=== PATIENT | female | born 1990 | race African-American/Black ===

== ENCOUNTER 2021-06-21 23:39 | Inpatient (IN) | payer OTHER ==
[2021-06-22 00:09] VITALS: BMI 40.4
[2021-06-22] MEDS ORDERED: Bicitra 30 ML UDCUP PO PRN (00:17)
[2021-06-22] MEDS ORDERED: Ondansetron PF 4 MG/2 ML Vial IVP PRN ×4 (00:17→08:15)
[2021-06-22] MEDS ORDERED: Famotidine/PF 20 mg/2ml Vial SLOW IVP PRN (00:17)
[2021-06-22] MEDS ORDERED: hydrALAZINE 20 MG/ML VIAL SLOW IVP PRN ×2 (00:17→08:15)
[2021-06-22] MEDS ORDERED: Acetaminophen 500 MG TAB PO PRN (00:17)
[2021-06-22] MEDS ORDERED: CEFAZOLIN 2 GM in Premix Bag 1 BAG IVPB SCH (00:30)
[2021-06-22] MEDS ORDERED: Lactated Ringer's 1,000 ML IV SCH ×2 (00:30)
[2021-06-22] MEDS ORDERED: Meperidine HCl/PF 25 MG/ML VIAL SLOW IVP PRN ×2 (00:43→03:12)
[2021-06-22] MEDS ORDERED: Ondansetron HCl/PF 4 MG/2 ML Vial IVP PRN ×2 (00:43→03:12)
[2021-06-22] MEDS ORDERED: Fentanyl 100 MCG/2 ML VIAL SLOW IVP PRN ×2 (00:43→03:12)
[2021-06-22] MEDS ORDERED: diphenhydrAMINE 50 MG/ML VIAL IVP PRN ×2 (00:43→03:12)
[2021-06-22] MEDS ORDERED: Hydrocerin (Eucerin) Cream 120 gm Jar TOP PRN ×2 (00:43→03:12)
[2021-06-22] MEDS ORDERED: Promethazine HCl 25 MG/ML VIAL IM PRN ×2 (00:43→03:12)
[2021-06-22] MEDS ORDERED: Ketorolac Tromethamine 30 MG/ML VIAL IVP PRN (00:43)
[2021-06-22] MEDS ORDERED: Naloxone HCl 0.4 mg/ml Vial IVP PRN ×4 (00:43→03:12)
[2021-06-22] MEDS ORDERED: HYDROmorphone 2 MG/ML VIAL SLOW IVP PRN ×2 (00:43→03:12)
[2021-06-22] MEDS ORDERED: Promethazine HCl 25 MG SUPP PR PRN ×2 (00:43→03:12)
[2021-06-22] MEDS ORDERED: Naloxone HCl 0.4 mg/ml Vial IV PRN ×2 (00:43→03:12)
[2021-06-22] MEDS ORDERED: Ketorolac Tromethamine 30 MG/ML VIAL IVP SCH ×2 (00:45→03:15)
[2021-06-22] MEDS ORDERED: Communication Order-Pharmacy FS SCH ×2 (00:45→03:15)
[2021-06-22 01:08] LABS: Hemoglobin 11.8 g/dL (12.0-15.5); Mean Corpuscular HGB CONC 32.9 g/dL (32.0-36.0); Mean Corpuscular Hemoglobin 31.7 pg (27.0-33.0); Mean Corpuscular Volume 96.5 fl (81.6-98.3); Platelet Count 187 10x3/uL (150-450); RBC Distribution Width 13.9 % (11.5-14.5); Red Blood Cell (RBC) Count 3.72 10x6/uL (3.90-5.03)
[2021-06-22] MEDS ORDERED: Morphine PF 10 MG/10 ML VIAL ONE ×2 (01:36→07:27)
[2021-06-22 02:05] LABS: Hep B Surf Ag Non-Reactive S/CO (NonReactive); Syphilis Antibody Nonreactive (Nonreactive); Syphilis Antibody Index 0.11 S/CO (<1.00 Non-Reactive)
[2021-06-22] MEDS ORDERED: Dexamethasone 4 mg/ml Vial ONE (02:09)
[2021-06-22] MEDS ORDERED: PHENYLEPHRINE-NS 100 MCG/ML 10 ML SYRINGE ONE (02:09)
[2021-06-22] MEDS ORDERED: Ondansetron PF 4 MG/2 ML Vial ONE (02:09)
[2021-06-22] MEDS ORDERED: Oxytocin 10 UNITS/ML VIAL ONE (02:09)
[2021-06-22 02:10] LABS: HBSAg Index 0.18 S/CO (0-0.99)
[2021-06-22] MEDS ORDERED: L&D-Morphine 4 MG/ML VIAL SLOW IVP PRN (03:12)
[2021-06-22 04:12] LABS: SARS-CoV-2 NAA Rapid Test Not Detected (NotDetected)
[2021-06-22] MEDS: Ketorolac Tromethamine 30 MG/ML VIAL IVP PRN ×2 (04:31→13:31)
[2021-06-22] MEDS ORDERED: Morphine 4 MG/ML VIAL ONE (07:32)
[2021-06-22 08:11] LABS: HIV (1/2) Antibody/Antigen Non-Reactive (NonReactive); HIV 1/2 INDEX 0.12 S/CO (<1.00)
[2021-06-22] MEDS ORDERED: Bisacodyl 10 MG SUPP PR PRN (08:15)
[2021-06-22] MEDS ORDERED: Lanolin Ointment 7 GM TUBE TOP PRN (08:15)
[2021-06-22] MEDS ORDERED: Boostrix 0.5 ML (Tdap) VIAL IM ONE (08:15)
[2021-06-22] MEDS: Ferrous Sulfate 325 MG TAB PO SCH ×2 (11:44→21:36)
[2021-06-22] MEDS: Docusate Calcium (SURFAK) 240 MG CAP PO SCH ×2 (11:44→21:35)
[2021-06-22] MEDS: Prenatal Vitamin 1 TAB PO SCH (11:45)
[2021-06-22] MEDS: HYDROcodone/Acetaminophen 5/325 mg Tablet PO PRN (21:34)
[2021-06-22] MEDS: Simethicone Chewable 80 MG TAB PO PRN (21:35)
[2021-06-23] MEDS: HYDROcodone/Acetaminophen 5/325 mg Tablet PO PRN ×2 (04:26→11:22)
[2021-06-23] MEDS: Simethicone Chewable 80 MG TAB PO PRN (06:12)
[2021-06-23] MEDS: Ibuprofen 800 MG TAB PO SCH ×3 (06:12→20:46)
[2021-06-23 06:50] LABS: Hemoglobin 9.1 g/dL (12.0-15.5); Mean Corpuscular HGB CONC 32.4 g/dL (32.0-36.0); Mean Corpuscular Hemoglobin 31.9 pg (27.0-33.0); Mean Corpuscular Volume 98.6 fl (81.6-98.3); Mean Platelet Volume 10.2 fl (7.4-10.4); Platelet Count 144 10x3/uL (150-450); RBC Distribution Width 13.7 % (11.5-14.5); Red Blood Cell (RBC) Count 2.85 10x6/uL (3.90-5.03); White Blood Cell (WBC) Count 7.6 10x3/uL (3.5-10.5)
[2021-06-23] MEDS: Prenatal Vitamin 1 TAB PO SCH (08:04)
[2021-06-23] MEDS: Docusate Calcium (SURFAK) 240 MG CAP PO SCH ×2 (08:04→20:46)
[2021-06-23] MEDS: Ferrous Sulfate 325 MG TAB PO SCH ×2 (08:05→20:48)
[2021-06-24] MEDS: Ibuprofen 800 MG TAB PO SCH ×3 (04:22→21:36)
[2021-06-24] MEDS: HYDROcodone/Acetaminophen 5/325 mg Tablet PO PRN ×4 (04:26→21:36)
[2021-06-24] MEDS: Docusate Calcium (SURFAK) 240 MG CAP PO SCH ×2 (09:39→21:36)
[2021-06-24] MEDS: Ferrous Sulfate 325 MG TAB PO SCH ×2 (09:39→22:55)
[2021-06-24] MEDS: Prenatal Vitamin 1 TAB PO SCH (09:39)
[2021-06-25] MEDS: Ibuprofen 800 MG TAB PO SCH (05:56)
[2021-06-25] MEDS: HYDROcodone/Acetaminophen 5/325 mg Tablet PO PRN ×2 (05:58→10:29)
[2021-06-25 07:54] VITALS: BP 116/67; TEMP 98.8
[2021-06-25] MEDS: Ferrous Sulfate 325 MG TAB PO SCH (08:29)
[2021-06-25] MEDS: Prenatal Vitamin 1 TAB PO SCH (08:29)
[2021-06-25] MEDS: Docusate Calcium (SURFAK) 240 MG CAP PO SCH (08:29)
== END 2021-06-25 12:45 | disposition home or self-care (01) | DRG 788 ==
LOC: CSHLD/OP 23:39 → CSHLD 23:40 → UNDOADMIN 23:40 → CSHLD 06-22 00:17 → CSHPP 06-22 08:35
PROVIDERS: ADMIT Obstetrics & Gynecology; ATTEND Obstetrics & Gynecology
PROC: 10D00Z1 Extraction of Products of Conception, Low, Open Approach (ICD-10-PCS; principal; 2021-06-22)
DX: O34.211 Maternal care for low transverse scar from previous cesarean delivery (principal); O99.62 Diseases of the digestive system complicating childbirth; O77.0 Labor and delivery complicated by meconium in amniotic fluid; O99.02 Anemia complicating childbirth; K66.0 Peritoneal adhesions (postprocedural) (postinfection); Z3A.38 38 weeks gestation of pregnancy; Z37.0 Single live birth
CPT/HCPCS: 36415; 51702; 85027; 86780; 86850; 86900; 86901; 87340; 87389; 99285; J1100; J1885; J2270; J2274; J2405; J2550; J2590; J7120; S0028; U0002

== ENCOUNTER 2022-07-22 02:43 | Inpatient (IN) | payer OTHER ==
[2022-07-22 03:09] VITALS: BMI 39.6
[2022-07-22] MEDS ORDERED: Morphine 4 MG/ML VIAL SLOW IVP SCH ×2 (03:45→06:15)
[2022-07-22] MEDS ORDERED: Lactated Ringer's 1,000 ML IV SCH ×2 (03:45→08:00)
[2022-07-22 04:15] LABS: #Monocytes 0.4 10x3/uL (0.0-1.1); #Neutrophils 6.6 10x3/uL (1.5-8.4); %Basophils 0.1 % (0.0-2.0); %Eosinophils 0.5 % (0.0-6.0); %Lymphocytes 16.5 % (18.0-47.0); %Monocytes 4.9 % (0.0-10.0); %Neutrophils 77.6 % (40.0-75.0); Hemoglobin 11.7 g/dL (12.0-15.5); Mean Corpuscular HGB CONC 33.7 g/dL (32.0-36.0); Platelet Count 160 10x3/uL (150-450); RBC Distribution Width 13.3 % (11.5-14.5); Red Blood Cell (RBC) Count 3.77 10x6/uL (3.90-5.03); White Blood Cell (WBC) Count 8.5 10x3/uL (3.5-10.5)
[2022-07-22 04:21] LABS: ALT (SGPT) 7 U/L (8-55); AST (SGOT) 15 U/L (5-34); Albumin 3.3 g/dL (3.5-5.0); Alkaline Phosphatase 126 U/L (40-110); Anion Gap 13 mmol/L (10-20); BUN (Urea Nitrogen) 11 mg/dL (7.0-18.7); Bilirubin, Total 0.3 mg/dL (0.2-1.2); Calc. Creatinine Clearance 233 mL/min (70-130); Calcium 8.6 mg/dL (7.8-10.44); Carbon Dioxide 18 mmol/L (22-29); Chloride 109 mmol/L (98-107); Estimated GFR 105; Globulin 3.9 g/dL (2.4-3.5); Glucose 149 mg/dL (70-105); Potassium 4.1 mmol/L (3.5-5.1); Protein, Total 7.2 g/dL (6.0-8.3); Sodium 136 mmol/L (136-145)
[2022-07-22 05:10] LABS: Bilirubin Neg (Negative); Blood, Urine Negative (Negative); CAUTI Indications for Culture Pregnancy; Glucose, Urine (Dipstick) Normal (Negative); Ketone, Urine 5 mg/dL (Negative); Leukocyte Negative (Negative); Nitrite Negative (Negative); Protein, Urine (Dipstick) 15 mg/dl (Neg-Trace); Specific Gravity, Urine 1.025 (1.005-1.030); Urobilinogen Normal mg/dL (Less than 2)
[2022-07-22 05:11] LABS: Clarity Cloudy (Clear)
[2022-07-22 05:13] LABS: Urine Culture Reflex Yes Yes
[2022-07-22 05:22] LABS: Bacteria/HPF 1+ HPF (None Seen); RBC/HPF 0-3 HPF (0-3); WBC/HPF 0-3 HPF (0-3)
[2022-07-22] MEDS ORDERED: Promethazine HCl 25 MG/ML VIAL IM PRN ×2 (07:46→09:51)
[2022-07-22] MEDS ORDERED: Bicitra 30 ML UDCUP PO PRN (07:46)
[2022-07-22] MEDS ORDERED: Ondansetron PF 4 MG/2 ML Vial IVP PRN ×3 (07:46→11:47)
[2022-07-22] MEDS ORDERED: hydrALAZINE 20 MG/ML VIAL SLOW IVP PRN ×2 (07:46→11:47)
[2022-07-22] MEDS ORDERED: Famotidine/PF 20 mg/2ml Vial SLOW IVP PRN (07:46)
[2022-07-22] MEDS ORDERED: CEFAZOLIN 2 GM in Sodium Chloride 0.9% 100 ML IVPB SCH (08:00)
[2022-07-22] MEDS ORDERED: Morphine PF 10 MG/10 ML VIAL ONE (08:16)
[2022-07-22] MEDS ORDERED: ePHEDrine Sulfate 50 MG/10 ML VIAL ONE (08:16)
[2022-07-22] MEDS ORDERED: Ketorolac Tromethamine 30 MG/ML VIAL ONE (08:33)
[2022-07-22] MEDS ORDERED: Dexamethasone 4 mg/ml Vial ONE (08:33)
[2022-07-22] MEDS ORDERED: Oxytocin 10 UNITS/ML VIAL ONE (08:33)
[2022-07-22] MEDS ORDERED: Phenylephrine 40 MG/NS 250 ML 250 ML ONE (08:33)
[2022-07-22] MEDS ORDERED: Glycopyrrolate 0.2 MG/ML 5 ML SYRINGE ONE (08:33)
[2022-07-22] MEDS ORDERED: PHENYLEPHRINE-NS 100 MCG/ML 10 ML SYRINGE ONE (08:33)
[2022-07-22] MEDS ORDERED: Ondansetron PF 4 MG/2 ML Vial ONE (08:33)
[2022-07-22] MEDS ORDERED: Erythromycin Base 0.5% Oint 1 GM TUBE ONE (09:32)
[2022-07-22] MEDS ORDERED: Phytonadione Neonatal 1 MG/0.5 ML AMP ONE (09:32)
[2022-07-22] MEDS ORDERED: diphenhydrAMINE 50 MG/ML VIAL IVP PRN (09:51)
[2022-07-22] MEDS ORDERED: Fentanyl 100 MCG/2 ML VIAL SLOW IVP PRN (09:51)
[2022-07-22] MEDS ORDERED: Promethazine HCl 25 MG SUPP PR PRN (09:51)
[2022-07-22] MEDS ORDERED: Moisturizing Cream (Eucerin) 113 GM JAR TOP PRN (09:51)
[2022-07-22] MEDS ORDERED: Meperidine HCl/PF 25 MG/ML VIAL SLOW IVP PRN (09:51)
[2022-07-22] MEDS ORDERED: Naloxone HCl 0.4 mg/ml Vial IVP PRN ×2 (09:51)
[2022-07-22] MEDS ORDERED: Ondansetron HCl/PF 4 MG/2 ML Vial IVP PRN (09:51)
[2022-07-22] MEDS ORDERED: Naloxone HCl 0.4 mg/ml Vial IV PRN (09:51)
[2022-07-22] MEDS ORDERED: Communication Order-Pharmacy FS SCH (10:00)
[2022-07-22] MEDS ORDERED: Ketorolac Tromethamine 30 MG/ML VIAL IVP SCH (10:00)
[2022-07-22] MEDS ORDERED: Boostrix 0.5 ML (Tdap) VIAL (>/=7 yrs of age) IM ONE (11:47)
[2022-07-22] MEDS ORDERED: Bisacodyl 10 MG SUPP PR PRN (11:47)
[2022-07-22] MEDS ORDERED: Lanolin Ointment 7 GM TUBE TOP PRN (11:47)
[2022-07-22] MEDS ORDERED: Docusate 100 MG CAP PO SCH (12:00)
[2022-07-22] MEDS ORDERED: Ferrous Sulfate 325 MG TAB PO SCH (12:00)
[2022-07-22] MEDS ORDERED: Prenatal Vitamin 1 TAB PO SCH (12:00)
[2022-07-22 12:45] LABS: Syphilis Antibody Nonreactive (Nonreactive); Syphilis Antibody Index 0.12 S/CO (<1.00 Non-Reactive)
[2022-07-22 12:47] LABS: HBSAg Index 0.15 S/CO (0-0.99); Hep B Surf Ag Non-Reactive S/CO (NonReactive)
[2022-07-22] MEDS: Ketorolac Tromethamine 30 MG/ML VIAL IVP PRN ×2 (15:05→21:16)
[2022-07-22] MEDS: Ferrous Sulfate 325 MG TAB PO SCH (21:11)
[2022-07-22] MEDS: Docusate 100 MG CAP PO SCH (21:15)
[2022-07-22] MEDS: HYDROcodone/Acetaminophen 5/325 mg Tablet PO PRN (22:35)
[2022-07-23] MEDS: HYDROcodone/Acetaminophen 5/325 mg Tablet PO PRN ×5 (02:33→18:26)
[2022-07-23 03:31] LABS: Hemoglobin 9.8 g/dL (12.0-15.5); Mean Corpuscular Hemoglobin 31.5 pg (27.0-33.0); Mean Corpuscular Volume 92.6 fl (81.6-98.3); Mean Platelet Volume 10.1 fl (7.4-10.4); Platelet Count 150 10x3/uL (150-450); RBC Distribution Width 13.4 % (11.5-14.5); Red Blood Cell (RBC) Count 3.11 10x6/uL (3.90-5.03); White Blood Cell (WBC) Count 7.6 10x3/uL (3.5-10.5)
[2022-07-23] MEDS: Ketorolac Tromethamine 30 MG/ML VIAL IVP PRN (04:15)
[2022-07-23] MEDS: Prenatal Vitamin 1 TAB PO SCH (07:46)
[2022-07-23] MEDS: Ferrous Sulfate 325 MG TAB PO SCH ×2 (07:46→21:04)
[2022-07-23] MEDS: Docusate 100 MG CAP PO SCH ×2 (07:46→21:03)
[2022-07-23] MEDS: Simethicone Chewable 80 MG TAB PO PRN ×2 (07:46→12:19)
[2022-07-23] MEDS: Ibuprofen 800 MG TAB PO SCH ×2 (13:28→21:03)
[2022-07-24] MEDS: HYDROcodone/Acetaminophen 5/325 mg Tablet PO PRN ×5 (00:04→23:35)
[2022-07-24] MEDS: Ibuprofen 800 MG TAB PO SCH ×3 (05:51→21:30)
[2022-07-24] MEDS: Ferrous Sulfate 325 MG TAB PO SCH ×2 (08:41→21:30)
[2022-07-24] MEDS: Prenatal Vitamin 1 TAB PO SCH (08:41)
[2022-07-24] MEDS: Docusate 100 MG CAP PO SCH ×2 (08:41→21:30)
[2022-07-25] MEDS: HYDROcodone/Acetaminophen 5/325 mg Tablet PO PRN ×4 (03:58→17:44)
[2022-07-25] MEDS: Ibuprofen 800 MG TAB PO SCH ×2 (06:01→14:08)
[2022-07-25] MEDS: Prenatal Vitamin 1 TAB PO SCH (07:52)
[2022-07-25] MEDS: Ferrous Sulfate 325 MG TAB PO SCH (07:52)
[2022-07-25] MEDS: Docusate 100 MG CAP PO SCH (07:52)
[2022-07-25 07:59] VITALS: BP 114/58; TEMP 98.1
== END 2022-07-25 17:45 | disposition home or self-care (01) | DRG 788 ==
LOC: CSHLD/OP 02:43 → CSHLD 09:15 → CSHPP 12:35
PROVIDERS: ADMIT Obstetrics & Gynecology; ATTEND Obstetrics & Gynecology
PROC: 10D00Z1 Extraction of Products of Conception, Low, Open Approach (ICD-10-PCS; principal; 2022-07-22)
DX: O60.14X0 Preterm labor third trimester with preterm delivery third trimester, not applicable or unspecified (principal); Z3A.36 36 weeks gestation of pregnancy; Z37.0 Single live birth; O34.211 Maternal care for low transverse scar from previous cesarean delivery; Z91.018 Allergy to other foods; O99.62 Diseases of the digestive system complicating childbirth; K66.0 Peritoneal adhesions (postprocedural) (postinfection); O76 Abnormality in fetal heart rate and rhythm complicating labor and delivery; Q51.818 Other congenital malformations of uterus; O99.892 Other specified diseases and conditions complicating childbirth; O24.420 Gestational diabetes mellitus in childbirth, diet controlled
CPT/HCPCS: 36415; 51702; 80053; 81001; 85025; 85027; 86780; 86850; 86900; 86901; 87086; 87340; 99285; J1100; J1885; J2270; J2274; J2405; J2590; J3430; J3490

== ENCOUNTER 2024-04-18 15:41 | Day surgery (SDC) | payer OTHER ==
[2024-04-18 17:08] VITALS: BMI 38.5
[2024-04-18] MEDS ORDERED: Oxytocin 30 units/NS 500 ML 500 ML IV SCH (17:45)
== END 2024-04-18 18:45 | disposition home health service (06) ==
LOC: EEVIPCON 15:41 → CSHLD/OP 15:41
PROVIDERS: ATTEND Obstetrics & Gynecology
DX: O47.03 False labor before 37 completed weeks of gestation, third trimester (principal); O43.893 Other placental disorders, third trimester; O99.213 Obesity complicating pregnancy, third trimester; Z87.59 Personal history of other complications of pregnancy, childbirth and the puerperium; Z79.899 Other long term (current) drug therapy; Z3A.36 36 weeks gestation of pregnancy
CPT/HCPCS: 85027; 86780; 86850; 86900; 86901; 87340; 87389; 99282

== ENCOUNTER 2024-04-19 09:40 | Inpatient (IN) | payer OTHER ==
[2024-04-18 18:54] LABS: Hematocrit 33.5 % (34.9-44.5); Hemoglobin 10.7 g/dL (12.0-15.5); Mean Corpuscular HGB CONC 31.9 g/dL (32.0-36.0); Mean Corpuscular Hemoglobin 30.3 pg (27.0-33.0); Mean Corpuscular Volume 94.9 fL (81.6-98.3); Mean Platelet Volume 9.5 fL (7.4-10.4); Platelet Count 202 10x3/uL (150-450); RBC Distribution Width 13.9 % (11.5-14.5); Red Blood Cell (RBC) Count 3.53 10x6/uL (3.90-5.03); White Blood Cell (WBC) Count 7.5 10x3/uL (3.5-10.5)
[2024-04-18 19:26] LABS: Syphilis Antibody Nonreactive (Nonreactive); Syphilis Antibody Index 0.15 S/CO (<1.00 Non-Reactive)
[2024-04-18 19:53] LABS: HBsAg Index 0.93 S/CO (0-0.99); Hep B Surf Ag - L&D Non-Reactive S/CO (NonReactive)
[2024-04-18 21:03] LABS: HIV (1/2) Antibody/Antigen Non-Reactive (NonReactive); HIV 1/2 INDEX 0.09 S/CO (<1.00)
[2024-04-19] MEDS ORDERED: diphenhydrAMINE 50 MG/ML VIAL IVP PRN (10:20)
[2024-04-19] MEDS ORDERED: Meperidine HCl/PF 25 MG (1 mL) VIAL SLOW IVP PRN (10:20)
[2024-04-19] MEDS ORDERED: Naloxone HCl 0.4 mg/ml Vial IV PRN (10:20)
[2024-04-19] MEDS ORDERED: Ondansetron PF 4 MG/2 ML Vial IVP PRN ×4 (10:20→15:01)
[2024-04-19] MEDS ORDERED: Moisturizing Cream (Eucerin) 113 GM JAR TOP PRN (10:20)
[2024-04-19] MEDS ORDERED: Naloxone HCl 0.4 mg/ml Vial IVP PRN ×2 (10:20)
[2024-04-19] MEDS ORDERED: Promethazine HCl 25 MG/ML VIAL IM PRN ×2 (10:20→10:30)
[2024-04-19 10:26] VITALS: BMI 38.5
[2024-04-19] MEDS ORDERED: Ketorolac Tromethamine 30 MG (1 mL) VIAL IVP SCH (10:30)
[2024-04-19] MEDS ORDERED: Bicitra 30 ML UDCUP PO PRN (10:30)
[2024-04-19] MEDS ORDERED: Oxytocin 30 units/NS 500 ML 500 ML IV SCH (10:30)
[2024-04-19] MEDS ORDERED: Communication Order-Pharmacy FS SCH (10:30)
[2024-04-19] MEDS ORDERED: hydrALAZINE 20 MG/ML VIAL SLOW IVP PRN ×2 (10:30→15:01)
[2024-04-19] MEDS: Famotidine/PF 20 mg/2ml Vial SLOW IVP PRN (11:21)
[2024-04-19] MEDS: CEFAZOLIN 2 GM in Sodium Chloride 0.9% 100 ML IVPB SCH (11:21)
[2024-04-19] MEDS: Lactated Ringer's 1,000 ML IV SCH (11:22)
[2024-04-19] MEDS: Ketorolac Tromethamine 30 MG (1 mL) VIAL IVP PRN ×2 (13:27→21:06)
[2024-04-19] MEDS: fentaNYL 50 mcg/mL 1 mL Vial SLOW IVP PRN (14:11)
[2024-04-19] MEDS: fentaNYL 50 mcg/mL 1 mL Vial ONE (14:20)
[2024-04-19] MEDS: PHENYLEPHRINE-NS 100 MCG/ML 10 ML SYRINGE ONE (14:20)
[2024-04-19] MEDS: Oxytocin 10 UNITS/ML VIAL ONE ×2 (14:20→14:21)
[2024-04-19] MEDS: Ondansetron PF 4 MG/2 ML Vial ONE (14:20)
[2024-04-19] MEDS: Morphine PF 10 MG/10 ML VIAL ONE (14:20)
[2024-04-19] MEDS: Carboprost 250 MCG/ML AMP ONE (14:26)
[2024-04-19] MEDS: Tranexamic Acid 1,000 MG/10 ML VIAL ONE (14:26)
[2024-04-19] MEDS: Misoprostol 200 MCG TAB ONE (14:26)
[2024-04-19] MEDS: Methylergonovine 0.2 MG/ML VIAL ONE (14:26)
[2024-04-19] MEDS: HYDROmorphone 0.5 MG/0.5 ML SYRINGE SLOW IVP PRN (14:50)
[2024-04-19] MEDS ORDERED: Bisacodyl 10 MG SUPP PR PRN (15:01)
[2024-04-19] MEDS ORDERED: Lanolin Ointment 7 GM TUBE TOP PRN (15:01)
[2024-04-19] MEDS ORDERED: diphenhydrAMINE 25 MG CAP PO PRN (15:01)
[2024-04-19] MEDS: Boostrix 0.5 ML (Tdap) VIAL (>/=7 yrs of age) IM ONE (16:04)
[2024-04-19] MEDS: Ibuprofen 800 MG TAB PO SCH (16:19)
[2024-04-19] MEDS: Docusate 100 MG CAP PO SCH (21:07)
[2024-04-19] MEDS: Ferrous Sulfate 325 MG TAB PO SCH (21:07)
[2024-04-20 05:08] LABS: Hematocrit 28.4 % (34.9-44.5); Hemoglobin 9.5 g/dL (12.0-15.5); Mean Corpuscular HGB CONC 33.5 g/dL (32.0-36.0); Mean Corpuscular Hemoglobin 31.6 pg (27.0-33.0); Mean Corpuscular Volume 94.4 fL (81.6-98.3); Mean Platelet Volume 9.8 fL (7.4-10.4); Platelet Count 157 10x3/uL (150-450); RBC Distribution Width 13.8 % (11.5-14.5); Red Blood Cell (RBC) Count 3.01 10x6/uL (3.90-5.03); White Blood Cell (WBC) Count 7.3 10x3/uL (3.5-10.5)
[2024-04-20] MEDS: HYDROcodone/Acetaminophen 5/325 mg Tablet PO PRN (08:29)
[2024-04-20] MEDS: Prenatal Vitamin 1 TAB PO SCH (08:30)
[2024-04-20] MEDS: Simethicone Chewable 80 MG TAB PO PRN (20:22)
[2024-04-20] MEDS: Ibuprofen 800 MG TAB PO SCH (21:44)
[2024-04-21] MEDS: HYDROcodone/Acetaminophen 5/325 mg Tablet PO PRN (12:40)
[2024-04-22 07:23] VITALS: BP 143/86; TEMP 97.5
== END 2024-04-22 15:30 | disposition home or self-care (01) | DRG 785 ==
LOC: CSHLD 09:40 → CSHPED 15:30
PROVIDERS: ADMIT Obstetrics & Gynecology; ATTEND Obstetrics & Gynecology
PROC: 10D00Z1 Extraction of Products of Conception, Low, Open Approach (ICD-10-PCS; principal; 2024-04-19)
PROC: 0UB70ZZ Excision of Bilateral Fallopian Tubes, Open Approach (ICD-10-PCS; 2024-04-19)
DX: O34.211 Maternal care for low transverse scar from previous cesarean delivery (principal); Z3A.36 36 weeks gestation of pregnancy; Z37.0 Single live birth
CPT/HCPCS: 36415; 51702; 85027; 86780; 86850; 86900; 86901; 87340; 87389; 88302; J1170; J1885; J2274; J2405; J2590; J3010; J3490; J7120